=== PATIENT | male | born 1960 ===

== ENCOUNTER 2017-07-28 23:47 | Emergency (ER) | payer SELFPAY ==
[2017-07-29] MEDS ORDERED: Sodium Chloride 0.9% 1,000 ML ONE (00:17)
[2017-07-29] MEDS ORDERED: Sodium Chloride 0.9% 1,000 ML IV ONE (00:22)
--- NOTE | 2017-07-29 00:22 | C.PDOC ---
History Of Present Illness Patient presents to the ER with a complaint of intermittent abdominal pain for the past 2 hours. Patient has a Hx of an umbilical hernia and left inguinal hernia. Family states that he has not drank for about 4-6 months. Denies fever or chills. No nausea or vomiting. Has had normal bm today Time Seen by Provider: 07/29/17 00:21 Chief Complaint (Nursing): Abdominal Pain History Per: Patient History/Exam Limitations: no limitations Onset/Duration Of Symptoms: Hrs, Intermittent Episodes Current Symptoms Are (Timing): Still Present Severity: Moderate Pain Scale Rating Of: 4 Location Of Pain/Discomfort: Periumbilical Radiation Of Pain To:: None Quality Of Discomfort: Unable To Describe Associated Symptoms: Other (Hernias). denies: Fever, Chills, Nausea, Vomiting Exacerbating Factors: None Alleviating Factors: None Last Bowel Movement: Today Recent travel outside of the [place]: No Additional History Per: Family Past Medical History Reviewed: Historical Data, Nursing Documentation, Vital Signs Vital Signs: Last Vital Signs Temp 97.7 F 07/29/17 03:01 Pulse 89 07/29/17 03:01 Resp 18 07/29/17 03:01 BP 119/74 07/29/17 03:01 Pulse Ox 96 07/29/17 03:01 - [facility] Procedures DRAINAGE OF RECTUM, OPEN APPROACH (05/05/16) Family History: States: No Known Family Hx - Social History Hx Alcohol Use: Yes (1 bottle of tequilla/day) Hx Substance Use: No - Immunization History Hx Tetanus Toxoid Vaccination: No Hx Influenza Vaccination: No Hx Pneumococcal Vaccination: No Review Of Systems Constitutional: Negative for: Fever, Chills Eyes: Positive for: Other (Scleral jaundice) Cardiovascular: Negative for: Chest Pain Respiratory: Negative for: Shortness of Breath Gastrointestinal: Positive for: Abdominal Pain, Other (Umbilical hernia) Genitourinary: Positive for: Other (Inguinal hernia) Physical Exam - Physical Exam Appears: Non-toxic, No Acute Distress Skin: Warm, Dry Head: Normacephalic Eye(s): bilateral: Scleral Icterus Oral Mucosa: Moist Chest: Symmetrical, No Tenderness Cardiovascular: Rhythm Regular Respiratory: No Rales, No Rhonchi, No Wheezing Gastrointestinal/Abdominal: Soft, Tenderness, Distention, No Guarding, No Rebound, Hernia (Reducible umbilical) Back: Normal Inspection Male Genital: Scrotal Swelling, Other (Left inguinal hernia) Extremity: Pedal Edema (trace) Extremity: Bilateral: Atraumatic Pulses: Left Dorsalis Pedis: Normal, Right Dorsalis Pedis: Normal Neurological/Psych: Oriented x3, Normal Speech Gait: Steady ED Course And Treatment - Laboratory Results Result Diagrams: 07/29/17 00:22 02 00:22 O2 Sat by Pulse Oximetry: 97 (room air) Pulse Ox Interpretation: Normal Progress Note: CT abd/pel, blood work, and urinalysis ordered. Pepcid, toradol, zofran, and IV fluids administered. Pt seen by surgery,. pt needs to follow up with hepato-billiary specialist for possible liver transplant Reevaluation Time: 02:42 Reassessment Condition: Improved Disposition Counseled Patient/Family Regarding: Studies Performed, Diagnosis, Need For Followup, Rx Given - Disposition Referrals: [facility] [Outside] [facility] [Outside] Pavan Hatch MD [Staff Provider] - Disposition: HOME/ ROUTINE Disposition Time: 00:22 Condition: FAIR Prescriptions: Lactulose 20 gm PO DAILY #300 solution Ondansetron ODT [Zofran ODT] 1 odt PO BID PRN #20 odt PRN Reason: Nausea/Vomiting Instructions: Cirrhosis (DC), Jaundice, Adult (DC), Umbilical Hernia, Adult Forms: [facility] (Malay) Print Language: CROATIAN - Clinical Impression Clinical Impression: Abdominal pain, Liver cirrhosis, Umbilical hernia, Inguinal hernia - Scribe Statement The provider has reviewed the documentation as recorded by the Scribsandy Verdin All medical record entries made by the Eliasibsandy were at my direction and personally dictated by me. I have reviewed the chart and agree that the record accurately reflects my personal performance of the history, physical exam, medical decision making, and the department course for this patient. I have also personally directed, reviewed, and agree with the discharge instructions and disposition.
[2017-07-29 00:31] LABS: BASO % 0.7 % (0.0-2.0); EOS # 0.2 K/uL (0.0-0.7); EOS % 4.6 % (0.0-4.0); LYMPH # 1.6 K/uL (1.0-4.3); LYMPH % 36.4 % (20.0-40.0); MEAN CORPUSCULAR HEMOGLOBIN 35.8 pg (27.0-31.0); MEAN CORPUSCULAR HGB CONC 34.8 g/dL (33.0-37.0); MEAN PLATELET VOLUME 9.4 fL (7.2-11.7); MONO # 0.6 K/uL (0.0-0.8); NEUT % 44.3 % (50.0-75.0); NRBC % 0.2 % (0.0-2.0); RBC 3.37 Mil/uL (4.40-5.90); RED CELL DISTRIBUTION WIDTH 14.2 % (11.5-14.5); WHITE BLOOD COUNT 4.5 K/uL (4.8-10.8)
[2017-07-29 00:33] LABS: INR 1.7; PROTHROMBIN TIME 19.9 SECONDS (9.7-12.2)
[2017-07-29 00:35] LABS: MEAN CELL VOLUME 102.7 fL (80.0-94.0)
[2017-07-29 00:37] LABS: SQUAMOUS EPITHIAL < 1 /hpf (0-5); URINE BACTERIA RARE (<OCC); URINE BILIRUBIN 1+ (NEGATIVE); URINE BLOOD NEGATIVE (NEGATIVE); URINE CLARITY Hazy (Clear); URINE COLOR Amber (YELLOW); URINE GLUCOSE (UA) NORMAL (Normal); URINE LEUKOCYTE ESTERASE NEG Leu/uL (Negative); URINE NITRATE NEGATIVE (NEGATIVE); URINE PROTEIN 1+ mg/dL (NEGATIVE)
[2017-07-29] MEDS ORDERED: Iohexol 350mg/ml 100 ML ONE (00:41)
[2017-07-29 00:46] LABS: ALB/GLOB RATIO 0.8 (1.0-2.1); ALBUMIN 3.1 g/dL (3.5-5.0); ALT/SGPT 37 U/L (21-72); AST/SGOT 60 U/L (17-59); BLOOD UREA NITROGEN 9 mg/dL (9-20); GFR AFRICAN-AMERICAN > 60; GFR NON-AFRICAN AMERICAN > 60; LIPASE 109 U/L (23-300)
--- NOTE | 2017-07-29 01:53 | CT ---
EXAM: CT Abdomen and Pelvis With Intravenous Contrast CLINICAL HISTORY: 57 years old, male; Pain; Abdominal pain and other: Left inguinal hernia, cirrhotic; Prior surgery; Surgery type: Rectal surgery; Patient HX: 05-05-16 images sent; Additional info: Abd pain, left inguinal hernia, cirrhotic TECHNIQUE: Axial computed tomography images of the abdomen and pelvis with intravenous contrast. All CT scans at this facility use one or more dose reduction techniques, viz.: automated exposure control; ma/kV adjustment per patient size (including targeted exams where dose is matched to indication; i.e. head); or iterative reconstruction technique. Coronal and sagittal reformatted images were created and reviewed. CONTRAST: 100 mL of administered intravenously. COMPARISON: CT - ABD PELVIS PO IV CONTRAST 2016-05-05 20:06 FINDINGS: Lower thorax: There is minimal bibasilar atelectasis. ABDOMEN: Liver: The liver is shrunken and nodular in contour. There are innumerable low density lesions throughout the liver most of which are too small to characterize, probably cysts. The largest measures 2 cm in the left hepatic lobe and is likely a hepatic cyst. There is an exophytic solid-appearing lesion in the right hepatic lobe measuring 3.5 x 4.2 cm compared to prior measurement 2.1 x 3.2 cm, increased. Hepatocellular carcinoma is not excluded. Gallbladder and bile ducts: The gallbladder is distended and thickwalled. There is as well in the gallbladder neck measuring 8 mm. No ductal dilation. Pancreas: Unremarkable. No mass. No ductal dilation. Spleen: The spleen is markedly enlarged measuring 19 cm. Adrenals: Unremarkable. No mass. Kidneys and ureters: There are multiple left renal cysts. There are multiple too small to characterize low-density lesions in both kidneys, probably cysts. No hydronephrosis. Stomach and bowel: Extensive diverticulosis is present in the sigmoid and descending colon. There is a ventral hernia containing small bowel. There is a short segment of mildly distended fluid-filled mid to distal small bowel leading up to the ventral hernia. The exiting small bowel and distal small bowel are decompressed. Partial small bowel obstruction is not excluded. Appendix: A normal appendix is identified. PELVIS: Bladder: Unremarkable. No mass. Reproductive: Unremarkable as visualized. ABDOMEN and PELVIS: Intraperitoneal space: There is a small amount of ascites in the abdomen surrounding the liver and spleen. The free fluid extends to the paracolic gutters and pelvis. Diffuse stranding of the mesentery in the abdomen and pelvis. No free air. Bones/joints: Degenerative changes. No acute fracture. No dislocation. Soft tissues: There is a left inguinal hernia containing fluid. Vasculature: Numerous varices noted in the upper abdomen. No abdominal aortic aneurysm. Lymph nodes: Multiple mildly prominent bilateral inguinal lymph nodes. IMPRESSION: Enlarging solid lesion in the right hepatic lobe. Hepatocellular carcinoma is not excluded. Recommend further evaluation with MRI of the abdomen. Mildly distended loop of mid to distal small bowel leading up to a ventral hernia. There is a transition point in the hernia with decompressed distal small bowel. Possible partial small bowel obstruction. Clinical correlation and followup recommended. End-stage cirrhosis with splenomegaly and portal hypertension. Distended gallbladder and gallstone. Possible gallbladder wall thickening. Recommend correlation with laboratory values. Right upper quadrant ultrasound could be obtained. Innumerable too small to characterize low-density lesions in the liver probably cysts. Ascites. Bilateral renal cysts. Too small to characterize low-density renal lesions probably cysts, unchanged.
[2017-07-29 03:02] VITALS: BP 119/74; PULSE 89; RESP 18; TEMP 97.7
[2017-07-29 03:17] VITALS: O2SAT 97
== END 2017-07-29 03:20 | disposition home or self-care (01) ==
LOC: C.ER 23:47
DX: K42.9 Umbilical hernia without obstruction or gangrene (principal); K40.90 Unilateral inguinal hernia, without obstruction or gangrene, not specified as recurrent; K74.60 Unspecified cirrhosis of liver; R10.9 Unspecified abdominal pain
CPT/HCPCS: 74177; 80053; 81001; 82140; 83690; 85025; 85610; 85730; 96361; 96374; 96375; 96376; 99285; G0480; J1885; J2405; J7040; Q9967